=== PATIENT | male | born 1940 | race Caucasian/White ===

== ENCOUNTER 2016-05-26 13:12 | Emergency (ER) | payer MEDICARE, MEDICAID ==
[~2016-05-26] VITALS: Ht 175.3 cm; Wt 92.0 kg
[2016-05-26 13:13] VITALS: BP 169/82; PULSE 70; RESP 14; TEMP 97.9; O2SAT 95
--- NOTE | 2016-05-26 13:51 | PD ---
HPI Chief Complaint: Cold / Flu Symptoms Time Seen by Provider: 13:40 Travel History International Travel<30 days: No Contact w/Intl Traveler<30days: No Traveled to known affect area: No History of Present Illness HPI 76-year-old male with history of COPD, coronary artery disease, type 2 diabetes well-controlled, hypertension presents for evaluation of cough. Symptoms started 3 weeks ago. The cough is productive with green sputum production. Associated congestion. He reports that he has had occasional chills but none currently. He is currently on vacation from [facility], [facility] on June 07. Denies chest pain or shortness of breath. No abdominal pain, sore throat, rash. No sick contacts. No other complaints. PFSH Past Medical History Cardiovascular Problems: Yes (9 CARDIAC STENTS) Diabetes: Yes (TYPE2) Respiratory: Yes (COPD) Social History Alcohol Use: No Tobacco Use: No Allergies-Medications (Allergen,Severity, Reaction): Coded Allergies: Penicillin (Verified Allergy, Unknown, 05/26/16) Sudafed (Verified Allergy, Unknown, 05/26/16) Yellow Dye #6 (Verified Allergy, Unknown, 05/26/16) Reported Meds & Prescriptions Reported Meds & Active Scripts Active Proair Hfa 8.5 GM Inh (Albuterol Sulfate) 90 Mcg/Act Aer 2 Puff INH Q4-6H PRN 108 mcg/actuation Prednisone 20 Mg Tab 20 Mg PO BID 5 Days Doxycycline Hyclate 100 Mg Cap 100 Mg PO BID Reported Isosorbide Mononitrate 10 Mg Tab 10 Mg PO BID Take 2 doses 7 hours apart. Labetalol (Labetalol HCl) 100 Mg Tab 100 Mg PO BID Nitrostat SL (Nitroglycerin) 0.3 Mg Subl 0.3 Mg SL DIRECTED PRN ONE TABLET UNDER THE TONGUE NEEDED FOR CHEST PAIN, MAY REPEAT EVERY FIVE MINUTES FOR A TOTAL OF 3 DOSES OR CALL 911 IF NO RELIEF Omeprazole 10 Mg Cap 10 Mg PO DAILY Januvia (Sitagliptin Phosphate) 25 Mg Tab 25 Mg PO DAILY Fenofibrate 40 Mg Tab 40 Mg PO DAILY Doxazosin (Doxazosin Mesylate) 1 Mg Tab 1 Mg PO BID Aspirin 81 Mg Chew 81 Mg CHEW DAILY Advair Diskus Inh (Fluticasone-Salmeterol Inh) 100-50 Mcg/Blist Aer 1 Puff INH BID Rinse mouth after use. Metformin (Metformin HCl) 500 Mg Tab 500 Mg PO BIDPC With meals Review of Systems Except as stated in HPI: all other systems reviewed are Neg Physical Exam Narrative GENERAL: Well-developed well-nourished male in no acute distress SKIN: Warm and dry. HEAD: Atraumatic. Normocephalic. EYES: Pupils equal and round. No scleral icterus. No injection or drainage. ENT: No nasal bleeding or discharge. Mucous membranes pink and moist. NECK: Trachea midline. No JVD. No lymphadenopathy. CARDIOVASCULAR: Regular rate and rhythm. No murmur appreciated. RESPIRATORY: No accessory muscle use. Mildly coarse breath sounds bilaterally. GASTROINTESTINAL: Abdomen soft, non-tender, nondistended. Hepatic and splenic margins not palpable. MUSCULOSKELETAL: No obvious deformities. No edema. NEUROLOGICAL: Awake and alert. No obvious cranial nerve deficits. Motor grossly within normal limits. Normal speech. Data Data Last Documented VS Vital Signs Date Time Temp Pulse Resp B/P Pulse Ox O2 Delivery O2 Flow Rate FiO2 05/26/16 13:13 97.9 70 14 169/82 95 Orders Chest, Pa & Lat (05/26/16 ) Albuterol-Ipratropium Neb (Duoneb Neb) (05/26/16 14:00) Prednisone (Deltasone) (05/26/16 14:00) MDM Medical Decision Making Medical Screen Exam Complete: Yes Emergency Medical Condition: Yes Medical Record Reviewed: Yes Interpretation(s) Chest x-ray no acute disease Differential Diagnosis COPD exacerbation, bronchitis, pneumonia, influenza, sinusitis Narrative Course 76 year old male with 3 weeks of productive cough. Physical examination is reassuring. He appears well. He is not tachypneic, tachycardic, febrile, hypoxic. He does have mildly coarse breath sounds bilaterally. He will be given a DuoNeb therapy as well as prednisone. Chest x-ray has been ordered. Chest x-ray is normal. The patient is being discharged with prescriptions for doxycycline, prednisone and albuterol inhaler. Diagnosis Primary Impression: COPD exacerbation Additional Instructions: Medication as prescribed. Stay well hydrated and well-nourished. Monitor blood sugar while taking prednisone as it will likely cause your blood sugar to go up. Follow-up with primary care physician as needed and return for any acutely new or worsening symptoms. Med/Other Pt SpecificInfo: Prescription(s) given Scripts Albuterol 8.5 GM Inh (Proair Hfa 8.5 GM Inh)90 Mcg/Act Aer2 Puff INH Q4-6H PRN ( SHORTNESS OF BREATH) #1 INHALER Ref 0 108 mcg/actuation Prov:Neel Lindsey MD 05/26/16 Prednisone 20 Mg Tab20 Mg PO BID 5 Days Ref 0 Prov:Neel Lindsey MD 05/26/16 Doxycycline Hyclate 100 Mg Ett005 Mg PO BID #20 CAP Ref 0 Prov:Neel Lindsey MD 05/26/16 Disposition: 01 DISCHARGE HOME Condition: Stable Darryl Rincon May 26, 2016 13:51
[2016-05-26] MEDS ORDERED: RESP: ALBUTEROL 2.5 MG/IPRATROPIUM 0.5 MG NEB (SCH) INH ONE (14:00)
[2016-05-26] MEDS ORDERED: predniSONE 20 MG TAB PO ONE (14:00)
--- NOTE | 2016-05-26 14:04 | RADRPT ---
EXAM DATE/TIME: 05/26/2016 14:04 [facility] COMPARISON: No previous studies available for comparison. INDICATIONS : Cough, congestion. MEDICAL HISTORY : Chronic obstructive pulmonary disease. Diabetes mellitus type II. SURGICAL HISTORY : Coronary artery stent. ENCOUNTER: Initial ACUITY: 3 weeks PAIN SCORE: 4/10 LOCATION: Left chest FINDINGS: PA and lateral views of the chest demonstrate the lungs to be symmetrically aerated without evidence of mass, infiltrate or effusion. The cardiomediastinal contours are unremarkable. Osseous structure s are intact. CONCLUSION: No acute disease. Emil Dumas MD FACR on May 26, 2016 at 14:02 Board Certified Radiologist. This report was verified electronically.
[2016-05-26] MEDS ORDERED: ALBUAER3 INH (14:08)
[2016-05-26] MEDS ORDERED: PRED20 PO (14:08)
[2016-05-26] MEDS ORDERED: DOXY100C PO (14:08)
[2016-05-26] MEDS ORDERED: NITR.3 SL (14:13)
[2016-05-26] MEDS ORDERED: DOXA1TAB36 PO (14:13)
[2016-05-26] MEDS ORDERED: OMEP10CA PO (14:13)
[2016-05-26] MEDS ORDERED: ADVA100A INH (14:13)
[2016-05-26] MEDS ORDERED: METF500T PO (14:13)
[2016-05-26] MEDS ORDERED: FENO1TAB46 PO (14:13)
[2016-05-26] MEDS ORDERED: LABE100T2 PO (14:13)
[2016-05-26] MEDS ORDERED: ASPI81CH CHEW (14:13)
[2016-05-26] MEDS ORDERED: ISOS10TA3 PO (14:13)
[2016-05-26] MEDS ORDERED: SITA25 PO (14:13)
== END 2016-05-26 15:06 | disposition home or self-care (01) ==
LOC: NETRI 13:12
DX: J44.1 Chronic obstructive pulmonary disease with (acute) exacerbation (principal); E11.9 Type 2 diabetes mellitus without complications; I10 Essential (primary) hypertension; Z79.84 Long term (current) use of oral hypoglycemic drugs; Z87.09 Personal history of other diseases of the respiratory system; Z86.79 Personal history of other diseases of the circulatory system
CPT/HCPCS: 71020; 94664; 99283; J7512